=== PATIENT | male | born 1940 | race Caucasian/White ===

== ENCOUNTER 2018-08-01 11:26 | Emergency (ER) | payer MEDICARE ==
[2018-08-01] MEDS ORDERED: Morphine 4 MG/ML VIAL ONE (11:48)
[2018-08-01] MEDS ORDERED: Ketorolac Tromethamine 30 MG/ML VIAL ONE (11:48)
[2018-08-01 12:06] LABS: #Basophils 0.1 thou/uL (0.0-0.2); #Eosinphils 0.1 thou/uL (0.0-0.7); #Lymphocytes 1.4 thou/uL (1.20-3.40); #Monocytes 0.5 thou/uL (0.11-0.59); #Neutrophils 3.7 thou/uL (1.40-6.50); %Basophils 1.5 % (0.0-1.0); %Eosinophils 1.7 % (0.0-10.0); %Lymphocytes 24.3 % (21.0-51.0); %Monocytes 8.5 % (0.0-10.0); %Neutrophils 63.9 % (42.0-75.0); Mean Corpuscular HGB CONC 33.8 g/dL (32.0-36.0); Mean Corpuscular Hemoglobin 29.4 pg (27.0-31.0); Mean Corpuscular Volume 87.1 fL (78.0-98.0); Mean Platelet Volume 8.3 fL (7.4-10.4); Platelet Count 222 thou/uL (130-400); RBC Distribution Width 11.5 % (11.5-14.5); Red Blood Cell (RBC) Count 5.09 mill/uL (4.70-6.10); White Blood Cell (WBC) Count 5.7 thou/uL (4.8-10.8)
[2018-08-01 12:14] LABS: ALT (SGPT) 14 U/L (8-55); AST (SGOT) 14 U/L (5-34); Albumin 3.9 g/dL (3.4-4.8); Alkaline Phosphatase 72 U/L (40-150); Anion Gap 13 mmol/L (10-20); BUN (Urea Nitrogen) 22 mg/dL (8.4-25.7); Bilirubin, Total 0.4 mg/dL (0.2-1.2); Calc. Creatinine Clearance 0 mL/min (70-130); Calcium 8.9 mg/dL (7.8-10.44); Carbon Dioxide 26 mmol/L (23-31); Chloride 106 mmol/L (98-107); Estimated GFR-MDRD 86; Globulin 2.7 g/dL (2.4-3.5); Glucose 117 mg/dL (83-110); Lipase 30 U/L (8-78); Protein, Total 6.6 g/dL (5.8-8.1); Sodium 141 mmol/L (136-145)
--- NOTE | 2018-08-01 13:26 | CT ---
CT ABDOMEN AND PELVIS WITH IV CONTRAST: INDICATIONS: History of abdominal pain. FINDINGS: There is a 6 x 9 mm stone within the proximal left ureter, causing mil left hydronephrosis. There is fatty infiltration of the liver. The pancreas, adrenal glands, and spleen appear within normal limits. The right kidney is normal nereyda earing. No additional ureteral stone is noted. There are moderate calcifications involving the abdominal and pelvic vasculature. There are scattered diverticula involving the colon. There is a mild amount of retained stool within the colon. The small bowel is normal appearing. No acute osseous abnormality is evident. IMPRESSION: 1. Proximal left ureteral stone causing mild left hydronephrosis. 2. Fatty liver. 3. Colonic diverticulosis. 4. Moderate calcification involving the abdominopelvic vasculature. POS: [facility]
[2018-08-01 13:27] LABS: Bilirubin Negative (Negative); Blood, Urine Trace (Negative); Clarity Clear (Clear); Glucose, Urine (Dipstick) Negative (Negative); Leukocyte Negative (Negative); Nitrite Negative (Negative); Protein, Urine (Dipstick) Negative (Neg-Trace); Urobilinogen 0.2 mg/dL (0.2-1.0)
[2018-08-01 13:36] LABS: Bacteria/HPF Rare-Few HPF (None Seen); RBC/HPF 0-3 HPF (0-3); Squamous Epithelial None Seen HPF (0-3); WBC/HPF None Seen HPF (0-3)
== END 2018-08-01 14:05 | disposition home or self-care (01) ==
LOC: SCSER 11:26
DX: N13.2 Hydronephrosis with renal and ureteral calculous obstruction (principal); E03.9 Hypothyroidism, unspecified; Z79.899 Other long term (current) drug therapy; Z79.82 Long term (current) use of aspirin
CPT/HCPCS: 36415; 74177; 80053; 81003; 81015; 83690; 85025; 87086; 96361; 96374; 96375; J1885; J2270

== ENCOUNTER 2018-08-03 08:25 | Outpatient (CLI) | payer MEDICARE ==
[2018-08-03 10:39] LABS: Platelet Count 299 thou/uL (130-400)
== END 2018-08-03 08:26 | disposition home or self-care (01) ==
LOC: LABBT 08:25
PROVIDERS: ATTEND Urology
DX: Z01.812 Encounter for preprocedural laboratory examination (principal); N20.1 Calculus of ureter
CPT/HCPCS: 85576

== ENCOUNTER 2018-08-04 08:59 | Day surgery (SDC) | payer MEDICARE ==
[2018-08-03 08:45] VITALS: BMI 23.0
[2018-08-04] MEDS ORDERED: Fentanyl 100 MCG/2 ML VIAL ONE (11:20)
[2018-08-04] MEDS ORDERED: HYDROcodone/Acetaminophen 5/325 mg Tablet ONE ×2 (16:19→16:55)
[2018-08-04] MEDS ORDERED: PROPOFOL 200 MG/20 ML VIAL ONE (17:02)
[2018-08-04] MEDS ORDERED: Glycopyrrolate 0.2 MG/ML 5 ML SYRINGE ONE (17:02)
[2018-08-04] MEDS ORDERED: ePHEDrine/0.9% NaCl/PF SYRINGE 50 mg/10 ml ONE (17:02)
[2018-08-04] MEDS ORDERED: Lidocaine 1% PF 5 ML VIAL ONE (17:02)
[2018-08-04] MEDS ORDERED: PHENYLEPHRINE-NS 100 MCG/ML 10 ML SYRINGE ONE (17:02)
[2018-08-04] MEDS ORDERED: Ondansetron PF 4 MG/2 ML Vial ONE (17:02)
--- NOTE | 2018-08-04 22:51 | OP ---
DATE OF PROCEDURE: 08/04/2018 PREOPERATIVE DIAGNOSIS: Left mid ureteral stone. POSTOPERATIVE DIAGNOSIS: Left mid ureteral stone. PROCEDURE PERFORMED: Left ESWL. ANESTHESIA: General. ESTIMATED BLOOD LOSS: Not recorded. FINDINGS: There is a 9 x 6 mm mid left ureteral stone that was very easy to see on fluoroscopy and was treated with a total of 3500 shocks with a maximum of 5. It appeared to fragment very well and the stent was not placed. We did not wish to place the stent on him, he has had a prior ureteroplasty done by a reconstructive surgeon in [place], so hopes were to avoid any type of cystoscopic approach. I think if he has trouble passing any of these small fragments, then we could look it potentially trying a stent later or even a nephrostomy tube if that was necessary. The stone did appear to fragment quite well and I am hoping that these stone fragments will pass without further consequence. OPERATIVE TECHNIQUE: I obtained written and verbal consent from the patient after documenting normal preoperative blood work and platelet function assays, he was taken to the operating suite. He was placed in the supine position on the treatment table. Plexipulses were placed in his lower extremities and turned on. He was given a general anesthetic was easily visualized, it was placed in treatment focal point. Shock wave therapy was commenced because of the mid ureteral stone and a pause was not required. We started at low kV and then slowly worked up to the level 5. Fluoroscopy was used intermittently to reposition as necessary and document fragmentation. The stones started breaking up almost immediately and it did stretch out for a couple of centimeters along the ureter and we treated the pieces as they for a total of 400-500 shocks. At that point, the procedure was terminated. He was awakened and extubated and taken by a stretcher to the recovery room. Job ID: [id number]
== END 2018-08-04 18:02 | disposition home or self-care (01) ==
LOC: SDC 08:59
PROVIDERS: ATTEND Urology
PROC: 0TF7XZZ Fragmentation in Left Ureter, External Approach (ICD-10-PCS; principal; 2018-08-04)
DX: N20.1 Calculus of ureter (principal); E03.9 Hypothyroidism, unspecified; N40.0 Benign prostatic hyperplasia without lower urinary tract symptoms; E78.5 Hyperlipidemia, unspecified; D64.9 Anemia, unspecified; Z79.82 Long term (current) use of aspirin; Z79.899 Other long term (current) drug therapy
CPT/HCPCS: J2001; J2405; J2704; J3010

== ENCOUNTER 2018-11-30 09:23 | Observation (INO) | payer MEDICARE ==
[2018-11-30] MEDS ORDERED: ISOVUE-370 76%-LOCM 1 ML ONE (09:24)
[2018-11-30 10:25] LABS: ALT (SGPT) 15 U/L (8-55); AST (SGOT) 15 U/L (5-34); Albumin 4.1 g/dL (3.4-4.8); Alkaline Phosphatase 74 U/L (40-150); Anion Gap 12 mmol/L (10-20); BUN (Urea Nitrogen) 17 mg/dL (8.4-25.7); Bilirubin, Total 0.5 mg/dL (0.2-1.2); Calc. Creatinine Clearance 0 mL/min (70-130); Calcium 9.1 mg/dL (7.8-10.44); Carbon Dioxide 28 mmol/L (23-31); Chloride 103 mmol/L (98-107); Estimated GFR-MDRD 83; Globulin 2.4 g/dL (2.4-3.5); Glucose 156 mg/dL (83-110); Potassium 4.6 mmol/L (3.5-5.1); Protein, Total 6.5 g/dL (5.8-8.1); Sodium 138 mmol/L (136-145)
[2018-11-30 10:41] LABS: #Lymphocytes 0.8 thou/uL (1.20-3.40); #Monocytes 0.3 thou/uL (0.11-0.59); #Neutrophils 6.1 thou/uL (1.40-6.50); %Basophils 0.3 % (0.0-1.0); %Eosinophils 0.4 % (0.0-10.0); %Lymphocytes 11.6 % (21.0-51.0); %Monocytes 4.2 % (0.0-10.0); %Neutrophils 83.5 % (42.0-75.0); Hemoglobin 15.2 g/dL (14.0-18.0); Mean Corpuscular HGB CONC 33.2 g/dL (32.0-36.0); Mean Corpuscular Hemoglobin 30.4 pg (27.0-31.0); Mean Corpuscular Volume 91.5 fL (78.0-98.0); Mean Platelet Volume 8.1 fL (7.4-10.4); Platelet Count 236 thou/uL (130-400); RBC Distribution Width 12.7 % (11.5-14.5); Red Blood Cell (RBC) Count 5.02 mill/uL (4.70-6.10); White Blood Cell (WBC) Count 7.2 thou/uL (4.8-10.8)
[2018-11-30] MEDS ORDERED: Aspirin 325 MG TAB ONE (10:48)
--- NOTE | 2018-11-30 11:33 | CT ---
CT BRAIN WITHOUT CONTRAST: HISTORY: Altered mental status, aphasia. FINDINGS: No evidence of infarct, hemorrhage, midline shift, or abnormal extraaxial fluid collections are seen. The ventricular size is appropriate and the basilar cisterns patent. The bony calvarium is intact. The visualized paranasal sinuses and mastoid air cells are well aerated. IMPRESSION: No CT evidence of acute intracranial process. POS: [facility]
[2018-11-30] MEDS ORDERED: Acetaminophen 325 MG TAB PO PRN (11:48)
[2018-11-30] MEDS ORDERED: Lorazepam 2 MG/ML VIAL SLOW IVP PRN (11:51)
--- NOTE | 2018-11-30 12:43 | HP ---
CHIEF COMPLAINT: Altered mental status. HISTORY OF PRESENT ILLNESS: This patient is a 78-year-old male with history of hypothyroidism, who takes daily aspirin at 81 mg. The patient's reported this morning that he had an episode of unresponsiveness and a blank stare that lasted about 30 seconds. She has noted that the patient has had a couple of previous episodes over the last couple of months in which his right hand was shaking rhythmically. Initially, she reports that he woke her up in the middle of the night with his right hand on her shoulder and was tapping rhythmically, but he was not awake. She tried to awake him, but he was groggy in words. He again had another episode at night that she reports she had noted only because she got up to go to the bathroom and this morning, she thought she had heard him have another episode of that which sounded-like his hand is tapping rhythmically on his leg and then shortly thereafter, he had this episode of inability to speak and unresponsiveness. The patient was asked if he remembered this episode and he thinks he does, but he is fairly unclear. While the patient has been here in the emergency department, he has had a second episode that lasted about 45 seconds. He is having some tremor in his upper extremities. His telemetry at that time showed his heart rate at 135, although it was a lot of artifact because of the shaking that was happening in his hands. He does have a persistent tremor in his hands at this time, although he states he feels completely normal. His does tend to indicate that his thinking is not quite clear, although he believes that it is. He denies any other complaints at this time. PAST MEDICAL HISTORY: The patient had carotid Doppler done about 10 years ago. At that time, he was noted to have a thyroid lesion. He subsequently had a thyroidectomy and remains hypothyroid. He also has a history of urethral stricture that was treated in dialysis. Subsequent to that, he developed a kidney stone that required lithotripsy. PAST SURGICAL HISTORY: Herniorrhaphy, orthopedic procedure of the thumb, urethral stricture, dilatation and thyroidectomy. MEDICATION LIST: 1. Simvastatin 40 mg daily. 2. Aspirin 81 mg daily. 3. Levothyroxine 125 mcg daily. 4. Tamsulosin 0.4 mg daily. 5. Vitamin D 5000 units daily. 6. Ferrous sulfate 325 daily. 7. B12 daily. ALLERGIES: NONE. FAMILY HISTORY: The patient's father had heart disease around his early to mid 50s. His mother had a series of TIAs and ultimately strokes that caused substantial debility. SOCIAL HISTORY: The patient is a nonsmoker. He drinks a glass of wine most nights. Denies drugs. He is . He is full code and his would be his surrogate decision maker. REVIEW OF SYSTEMS: All systems reviewed, all pertinent positives and negatives noted in the history of present illness. PHYSICAL EXAMINATION: VITAL SIGNS: Temperature 98.0, BP 135/73, pulse 84, respirations 16, O2 saturation 94% on room air. GENERAL APPEARANCE: Age-appropriate male, in no distress. He is awake, alert, pleasant, cooperative. HEENT: PERRL. No OP lesions. NECK: Supple and symmetric. No lymphadenopathy or JVD. HEART: Regular rate and rhythm with no murmurs, gallops, or rubs. LUNGS: Clear to auscultation bilaterally. Good chest wall expansion and air exchange. ABDOMEN: Soft, nontender, and nondistended. Positive bowel sounds. No masses. No organomegaly. EXTREMITIES: No cyanosis, clubbing, or edema. Good peripheral pulses. NEUROLOGIC: The patient appears awake and alert. He was not able to successfully complete a serial sevens test. He is otherwise grossly intact. He has normal spontaneous movement of extremities. He has normal function in cranial nerves. He does have a resting tremor in both hands, which is nonrhythmic. LABORATORY DATA: White count 7.2, hemoglobin 15.2, platelets 236. Sodium 138, potassium 4.6, chloride 103, BUN 17, creatinine 0.89, glucose 156. LFTs normal. Troponin negative. CT brain shows no acute changes. Appears to have some mild age-related atrophy. IMPRESSION AND PLAN: 1. Altered mental status. The differential includes possible stroke versus seizure versus thyrotoxicosis versus FISHERIES MANAGER vasculitis. The patient had a sedimentation rate in July that was 102. Repeat stat, sedimentation rate and CRP along with TSH and T4. We will keep him on telemetry, order an MRI of the brain, CT angio of the head and neck and consult Neurology. 2. Hypothyroidism. We will wait to see the results of the tests before reorder his medications. 3. Benign prostatic hyperplasia. Continue with tamsulosin. The patient had a relatively recent history of urethral stricture, so we will continue with that. 4. History of carotid stenosis. I did talk to Dr. Licona, who is the patient's PCP. He reports the patient does have a history of carotid stenosis with 50% to 60% occlusion based on Doppler, but with a normal CT angiogram several years ago. He was started on statin but in light of his CT angio, was taken off the statin. He did see Dr. Aguillon as far back as [address] Licona had put him back on the statin, which he is currently taking now. We will continue with that for now. Job ID: [id number]
[2018-11-30 13:12] VITALS: BMI 23.4
--- NOTE | 2018-11-30 13:31 | CT ---
FContrast-enhanced CTA neck and intracranial CTA. Contrast-enhanced CTA of the carotid and intracranial CTA performed. 2-D and 3-D reconstructed images performed on an independent 3-D workstation. HISTORY: TIAs. The lung apices are unremarkable. No evidence of superior mediastinal pathology seen. The aorta is unremarkable. The brachiocephalic artery is unremarkable on the right. The right and left common carotid arteries are patent. Vertebral arteries bilaterally are patent. The basilar artery is unremarkable. Right carotid: The right common carotid artery is unremarkable. The right ECA and ICA are patent. No significant evidence of right ICA flow-limiting lesions or stenosis seen. The the right supraclinoid ICA is patent. The right ANDREA and MCA vessels are patent. The left ICA is patent along its course. The supraclinoid left ICA is patent. The left ANDREA and MCA ve ssels are also patent. Posterior cerebral arteries are patent without evidence of significant stenosis or occlusion. IMPRESSION: Unremarkable contrast enhanced CTA of carotid and intracranial CTA. IMPRESSION: Normal carotid and intracranial CTA.
[2018-11-30 13:52] LABS: Troponin I Less than 0.010 ng/mL (< 0.028)
--- NOTE | 2018-11-30 17:03 | MRI ---
MRI OF BRAIN WITHOUT CONTRAST: 11/30/18 HISTORY: TIA versus new onset seizure, aphasia. FINDINGS: No restricted diffusion is seen. No evidence of infarct, hemorrhage, midline shift, or abnormal extra -axial fluid collections are seen. The ventricular size is appropriate and the basilar cisterns singer nt. There is mild mucosal disease in the paranasal sinuses. No tonsillar herniation is seen. IMPRESSION: No evidence of acute intracranial process. POS: [facility]
[2018-11-30 17:40] LABS: Troponin I Less than 0.010 ng/mL (< 0.028)
[2018-11-30] MEDS ORDERED: levETIRAcetam 500 MG TAB PO SCH (21:00)
--- NOTE | 2018-11-30 22:35 | CON ---
DATE OF CONSULTATION: 11/30/2018 CONSULTING PHYSICIAN: Hospitalist Service. IMPRESSION: Focal seizure activity. PLAN: 1. Keppra 1500 mg orally tonight and 500 mg twice a day. 2. Office followup. HISTORY OF PRESENT ILLNESS: Mr. Kennedy is a 78-year-old man, was brought in after having an episode of unresponsiveness. This morning, his notes that he was sitting at the table working a puzzle. She turned to look at him and found that he had a blank stare on his face. She called his name several times and could not get any kind of response from him. She called for his son to keep an eye on him while she went to put clothes on. When she returned, he was conscious and talking naturally again. He has no memory of the event, the total duration of the spell was probably no more than 30 to 45 seconds according to her assessment. In hindsight, she has seen several episodes where he will have a rhythmic patting of the right hand while he is sleeping. She thought she heard a bit of this prior to another episode where he was transiently unaware. He was brought into the hospital this morning. He had an MRI of the brain done, which was normal. A CTA of the [place] was also normal. He seemed to be a bit more lethargic in his usual state through the morning. His reports he is back to his baseline now. PAST MEDICAL HISTORY: Otherwise negative. ALLERGIES: NONE. SOCIAL HISTORY: No tobacco or alcohol use. MEDICATIONS: 1. Aspirin. 2. Levothyroxine. 3. Tamsulosin. 4. He took some type of pain medication for a kidney stone recently. FAMILY HISTORY: Noncontributory. REVIEW OF SYSTEMS: Ten-systems review of systems is otherwise negative. PHYSICAL EXAMINATION: GENERAL: He is a healthy-appearing elderly man, sitting up at the bedside. HEENT: Pupils are equal and reactive. Conjunctivae are clear. Oropharynx is clear. VITAL SIGNS: Have been stable. He is afebrile. NECK: Supple. EXTREMITIES: No cyanosis, clubbing, or edema. NEUROLOGIC: He is alert and appropriate. His speech is fluent and clear. Cranial nerves are intact. Motor exam shows good strength bilaterally. There is no fix or drift. No tremor or dysmetria is present. He can walk independently. IMAGING: EKG shows a sinus rhythm. LABORATORY DATA: Laboratory studies were unremarkable. SUMMARY: A 78-year-old man with a recent history of multiple episodes that appear to be consistent with focal seizure activity. I would be happy to follow up with him as an outpatient. Job ID: [id number]
[2018-12-01] MEDS ORDERED: Tamsulosin HCl 0.4 MG CAP PO SCH (09:00)
[2018-12-01] MEDS ORDERED: levETIRAcetam 500 MG TAB PO SCH ×3 (09:00→10:30)
[2018-12-01 11:40] VITALS: BP 126/69; TEMP 98.8
--- NOTE | 2018-12-01 13:45 | CT ---
"PRELIMINARY REPORT" Contrast-enhanced CTA neck and intracranial CTA. Contrast-enhanced CTA of the carotid and intracranial CTA performed. 2-D and 3-D reconstructed images performed on an independent 3-D workstation. HISTORY: TIAs. The lung apices are unremarkable. No evidence of superior mediastinal pathology seen. The aorta is unremarkable. The brachiocephalic artery is unremarkable on the right. The right and left common carotid arteries are patent. Vertebral arteries bilaterally are patent. The basilar artery is unremarkable. Right carotid: The right common carotid artery is unremarkable. The right ECA and ICA are patent. No significant evidence of right ICA flow-limiting lesions or stenosis seen. The the right supraclinoid ICA is patent. The right ANDREA and MCA vessels are patent. The left ICA is patent along its course. The supraclinoid left ICA is patent. The left ANDREA and MCA ve ssels are also patent. Posterior cerebral arteries are patent without evidence of significant stenosis or occlusion. IMPRESSION: Unremarkable contrast enhanced CTA of carotid and intracranial CTA. IMPRESSION: Normal carotid and intracranial CTA. Transcribed Date/Time: 12/01/2018 1:45 PM
[2018-12-01] MEDS ORDERED: Levothyroxine Sodium 25 MCG TAB PO SCH (21:00)
--- NOTE | 2018-12-02 11:53 | DIS ---
DATE OF ADMISSION: 11/30/2018 DATE OF DISCHARGE: 12/01/2018 DISCHARGE DISPOSITION: Home. PRIMARY DISCHARGE DIAGNOSIS: Focal seizure with altered mental state, resolved. SECONDARY DISCHARGE DIAGNOSES: Hypothyroidism, benign prostatic hypertrophy, and dyslipidemia. PROCEDURES DONE DURING HOSPITALIZATION: MRI brain done showed no acute intracranial process. Initial CT without contrast done showed no acute intracranial process. CT angio of brain was unremarkable, which showed normal carotid and intracranial CTA. Echo with 2D Doppler showed EF of 55% to 60%, no thrombus was seen in the cardiac chambers. H and H 15 and 45, platelet count 236, MCV is 91. Troponin x3 negative. CRP less than 0.5. TSH 2.21. BUN 17, creatinine 0.8. DISCHARGE MEDICATIONS: 1. Keppra 500 mg p.o. twice daily. 2. Flomax 0.4 mg p.o. q.p.m. 3. Zocor 40 mg p.o. at bedtime. 4. Synthroid 12.5 mcg p.o. at bedtime. 5. Ferrous sulfate 325 mg p.o. q.p.m. 6. Vitamin B12 of 500 mcg p.o. q.p.m. 7. Vitamin D3 of 5000 units p.o. daily. 8. Aspirin 81 mg p.o. daily. ALLERGIES: NO KNOWN DRUG ALLERGIES. INPATIENT CONSULT: Dr. Camargo for Neurology. DISCHARGE PLAN: The patient to follow up with Dr. Camargo as advised and primary care physician in one week. BRIEF COURSE DURING HOSPITALIZATION: The patient initially was brought to emergency room for altered mental state and right hand shaking. This happened on multiple occasions and happened once in the ER as well. In view of this, the patient was loaded up on Keppra and has been placed on Keppra 500 mg p.o. twice daily at the time of discharge. He was evaluated by Dr. Camargo. A complete neurologic workup was done, which does not reveal any mass. He likely will need further workup to rule out movement disorders as well. He is hemodynamically and neurologically stable. The patient has not had any undue sedation with Keppra. He is ambulating and needs to closely follow up with Dr. Camargo in the outpatient setting. Please note, I have seen and examined the patient on the day of discharge. Job ID: [id number] [facility]
== END 2018-12-01 12:31 | disposition home or self-care (01) ==
LOC: ERS 09:23 → 2SE 11:07
PROVIDERS: ADMIT Internal Medicine; ATTEND Internal Medicine
DX: R56.9 Unspecified convulsions (principal); N40.0 Benign prostatic hyperplasia without lower urinary tract symptoms; E78.5 Hyperlipidemia, unspecified; E89.0 Postprocedural hypothyroidism; Z79.82 Long term (current) use of aspirin; Z79.899 Other long term (current) drug therapy
CPT/HCPCS: 70450; 70496; 70498; 70551; 84484 ×2; 85652; 86140; 93005; 93306; 99285; G0378 ×2; 36415; 80053; 84443; 85025; Q9966